=== PATIENT | male | born 1950 | race Caucasian/White ===

== ENCOUNTER 2017-01-28 16:06 | Emergency (ER) | payer BC ==
[~2017-01-28] VITALS: Ht 167.6 cm; Wt 92.5 kg
[2017-01-28] MEDS ORDERED: METFORMIN HCL500 M1 ORAL ×2 (16:49→19:54)
[2017-01-28] MEDS ORDERED: HYZAAR 100-12.1 EACH ORAL (16:49)
[2017-01-28] MEDS ORDERED: NORVASC10 MG ORAL (16:49)
[2017-01-28] MEDS ORDERED: TRICOR48 MG ORAL (16:49)
[2017-01-28] MEDS ORDERED: METFORMIN HCL1000 M1 ORAL ×2 (16:49→19:54)
[2017-01-28] MEDS ORDERED: VITAMIN D1000 UNI1 ORAL (16:49)
[2017-01-28] MEDS ORDERED: FISH OIL CAP1000 MG ORAL (16:49)
[2017-01-28 17:21] LABS: BASOPHILS % (AUTO) 1.5 % (0.0-2.0); EOSINOPHILS % (AUTO) 0.1 % (0.0-3.0); HEMATOCRIT 47.8 % (42.0-52.0); HEMOGLOBIN 15.4 G/DL (14.2-18.0); LYMPHOCYTES % (AUTO) 10.9 % (20.0-45.0); MEAN CORPUSCULAR VOLUME 92 FL (80-99); MONOCYTES % (AUTO) 8.2 % (1.0-10.0); NEUTROPHILS % (AUTO) 79.4 % (45.0-75.0); PLATELET COUNT 303 K/UL (150-450); RED BLOOD COUNT 5.19 M/UL (4.70-6.10); RED CELL DISTRIBUTION WIDTH 11.7 % (11.6-14.8); WHITE BLOOD COUNT 7.6 K/UL (4.8-10.8)
[2017-01-28 17:28] LABS: ANION GAP 17 mmol/L (5-15); BLOOD UREA NITROGEN 82 mg/dL (7-18); CALCIUM 8.7 MG/DL (8.5-10.1); CARBON DIOXIDE 23 MMOL/L (21-32); CHLORIDE 95 MMOL/L (98-107); CREATININE 2.3 MG/DL (0.55-1.30); SODIUM 135 MMOL/L (136-145)
[2017-01-28 17:30] VITALS: BP 134/69
[2017-01-28 17:32] LABS: ALANINE AMINOTRANSFERASE 61 U/L (12-78); ALBUMIN 2.3 G/DL (3.4-5.0); ALBUMIN/GLOBULIN RATIO 0.4 (1.0-2.7); ALKALINE PHOSPHATASE 69 U/L (46-116); ASPARTATE AMINO TRANSFERASE 47 U/L (15-37); BILIRUBIN,TOTAL 0.3 MG/DL (0.2-1.0)
[2017-01-28 17:56] LABS: CKMB 4.5 NG/ML (0.0-3.6)
--- NOTE | 2017-01-28 18:11 | Emergency Room Report ---
History of Present Illness General Chief Complaint: Generalized Weakness Source: Patient Present Illness HPI Patient is a 66-year-old male presented after increased generalized weakness. Patient had recent increased epigastric pain as well as vomiting and diarrhea. He noticed increased abdominal distention. Patient had prior history of diabetes as well as hypertension. He denied any black or bloody stools. Allergies: Coded Allergies: No Known Allergies (Unverified , 01/28/17) Patient History Past Medical History: see triage record Reviewed Nursing Documentation: PMH: Agreed, PSxH: Agreed Nursing Documentation-PMH Past Medical History: No History, Except For Hx Cardiac Problems: No Hx Hypertension: Yes Hx Pacemaker: No Hx Asthma: No Hx COPD: No Hx Diabetes: Yes Hx Cancer: No Hx Gastrointestinal Problems: No Hx Dialysis: No History Of Psychiatric Problem: No Hx Neurological Problems: No Hx Cerebrovascular Accident: No Hx Seizures: No Review of Systems All Other Systems: negative except mentioned in HPI Physical Exam Vital Signs Date Time Temp Pulse Resp B/P (MAP) Pulse Ox O2 Delivery O2 Flow Rate FiO2 01/28/17 16:13 96.8 119 20 132/81 95 Room Air Sp02 EP Interpretation: reviewed, normal General Appearance: normal inspection, well appearing, no apparent distress, alert, GCS 15 Head: atraumatic ENT: normal ENT inspection, hearing grossly normal, normal voice Neck: normal inspection, full range of motion, supple, no bony tend Respiratory: normal inspection, lungs clear, normal breath sounds, no respiratory distress, no retraction, no wheezing Cardiovascular #1: regular rate, rhythm, no edema Gastrointestinal: normal inspection, soft, no guarding, no hernia, other - abdominal distention Genitourinary: no CVA tenderness Musculoskeletal: normal inspection, back normal, normal range of motion Neurologic: normal inspection, alert, oriented x3, responsive, oral and maxillofacial surgery III-XII nml as tested, speech normal Psychiatric: normal inspection, judgement/insight normal, mood/affect normal Skin: normal inspection, normal color, no rash Medical Decision Making Diagnostic Impression: Primary Impression: Acute kidney injury Additional Impressions: Dehydration Rhabdomyolysis Diabetes Hypokalemia Bowel obstruction ER Course Patient presented for abdominal pain. Differential diagnoses included ischemic bowel, appendicitis, perforated viscus, abdominal aortic aneurysm, inferior myocardial infarction, viral gastroenteritis Because of complexity of patient's case laboratory testing and imaging studies were ordered. Patient laboratory testing was notable for elevated creatinine and BUN consistent with acute kidney injury. The patient was mildly hypokalemic. Patient started on IV fluids as well as IV antiemetics. Patient was noted to have continued vomiting. A CT abdomen pelvis showed evidence of fluid-filled bowel in the proximal bowel as well as distended stomach . Patient admitted for IV hydration and as well as further monitoring of renal function.Dr. Panchal was contacted for surgical consult. Ng tube was ordered due to persistent vomiting Patient was subsequently discussed with Dr. Dalton Strickland who is capitated physician for possible transfer to [facility]. Labs Test 01/28/17 16:40 White Blood Count 7.6 K/UL (4.8-10.8) Red Blood Count 5.19 M/UL (4.70-6.10) Hemoglobin 15.4 G/DL (14.2-18.0) Hematocrit 47.8 % (42.0-52.0) Mean Corpuscular Volume 92 FL (80-99) Mean Corpuscular Hemoglobin 29.6 PG (27.0-31.0) Mean Corpuscular Hemoglobin Concent 32.2 G/DL (32.0-36.0) Red Cell Distribution Width 11.7 % (11.6-14.8) Platelet Count 303 K/UL (150-450) Mean Platelet Volume 7.3 FL (6.5-10.1) Neutrophils (%) (Auto) 79.4 % (45.0-75.0) Lymphocytes (%) (Auto) 10.9 % (20.0-45.0) Monocytes (%) (Auto) 8.2 % (1.0-10.0) Eosinophils (%) (Auto) 0.1 % (0.0-3.0) Basophils (%) (Auto) 1.5 % (0.0-2.0) Prothrombin Time 10.2 SEC (9.30-11.50) Prothromb Time International Ratio 1.0 (0.9-1.1) Activated Partial Thromboplast Time 28 SEC (23-33) Sodium Level 135 MMOL/L (136-145) Potassium Level 3.0 MMOL/L (3.5-5.1) Chloride Level 95 MMOL/L (98-107) Carbon Dioxide Level 23 MMOL/L (21-32) Anion Gap 17 mmol/L (5-15) Blood Urea Nitrogen 82 mg/dL (7-18) Creatinine 2.3 MG/DL (0.55-1.30) Estimat Glomerular Filtration Rate 28.8 mL/min (>60) Glucose Level 179 MG/DL (74-106) Lactic Acid Level 2.00 mmol/L (0.66-2.22) Calcium Level 8.7 MG/DL (8.5-10.1) Total Bilirubin 0.3 MG/DL (0.2-1.0) Aspartate Amino Transf (AST/SGOT) 47 U/L (15-37) Alanine Aminotransferase (ALT/SGPT) 61 U/L (12-78) Alkaline Phosphatase 69 U/L (46-116) Total Creatine Kinase 1193 U/L (26-308) Creatine Kinase MB 4.5 NG/ML (0.0-3.6) Creatine Kinase MB Relative Index 0.3 Troponin I 0.000 ng/mL (0.000-0.056) Total Protein 7.5 G/DL (6.4-8.2) Albumin 2.3 G/DL (3.4-5.0) Globulin 5.2 g/dL Albumin/Globulin Ratio 0.4 (1.0-2.7) Lipase 226 U/L (73-393) EKG Diagnostic Results Rate: tachycardiac Rhythm: NSR ST Segments: no acute changes ASA given to the pt in ED: No Rhythm Strip Diag. Results EP Interpretation: yes Rhythm: no PVC's, no ectopy, other - sinus tachycardia Last Vital Signs Date Time Temp Pulse Resp B/P (MAP) Pulse Ox O2 Delivery O2 Flow Rate FiO2 01/28/17 16:13 96.8 119 20 132/81 95 Room Air Status: unchanged Disposition: ADMITTED INPATIENT Condition: Serious Referrals: NON PHYSICIAN (PCP) Farhan Sebastian Jan 28, 2017 18:11
[2017-01-28 18:39] VITALS: BP 137/65
[2017-01-28 20:42] VITALS: BP 151/77
[2017-01-28] MEDS ORDERED: Miralax 17gm pkt ORAL PRN (21:00)
[2017-01-28] MEDS ORDERED: Nitroglycerin Subl 0.4mg tab SL PRN (21:00)
[2017-01-28] MEDS ORDERED: Heparin 5000 units/ml inj SUBQ SCH (21:00)
[2017-01-28] MEDS ORDERED: Potassium Chloride 10 MEQ in NS 1000ml 1,000 ML IV SCH (21:00)
[2017-01-28] MEDS ORDERED: Ketorolac 30mg Inj IV PRN (21:00)
[2017-01-28] MEDS ORDERED: Mylanta II UD 30ml ORAL PRN (21:00)
[2017-01-28] MEDS ORDERED: NovoLOG Insulin Flexpen SUBQ SCH (21:00)
[2017-01-28 22:38] VITALS: BP 125/67
[2017-01-28 23:16] VITALS: BP 125/67
[2017-01-28 23:28] LABS: APPEARANCE,URINE CLEAR; BILIRUBIN, URINE NEGATIVE (NEGATIVE); GLUCOSE, URINE (UA) NEGATIVE (NEGATIVE); KETONES,URINE NEGATIVE (NEGATIVE); LEUKOCYTE ESTERASE ,URINE NEGATIVE (NEGATIVE); NITRITE,URINE NEGATIVE (NEGATIVE); PH,URINE 5 (4.5-8.0); UROBILINOGEN,URINE NORMAL MG/DL (0.0-1.0)
[2017-01-28 23:39] LABS: PROTEIN,URINE NEGATIVE (NEGATIVE)
[2017-01-28 23:40] LABS: COLOR,URINE YELLOW
--- NOTE | 2017-01-29 09:47 | Diagnostic Imaging Report ---
Indication: Pain Comparison: None Technique: Contiguous helical CT images through the abdomen and pelvis was performed without intravenous and oral contrast. Axial, coronal and sagittal reconstructions were reformatted. CT Dose: Total DLP: 1161 mGycm; Total CTDI volume 19.1 Findings: Exam is limited due to lack of intravenous and oral contrast. The liver is enlarged in size measuring 23 cm in craniocaudal dimension. There are diffuse fatty infiltration of the liver. No focal lesions in liver are seen on this limited noncontrast exam. Gallbladder appears normal. No radiopaque gallstones. Spleen is normal. Pancreas is normal. There is some mild nodularity of the left adrenal gland. Right adrenal gland appears normal. Kidneys are without hydronephrosis. No urinary tract stones. No hydroureter. There is mild bilateral perinephric stranding which may be related to chronic scarring. The proximal small bowel loops are dilated. The distal small bowel loops are decompressed. Although well defined transition point is not clearly identified, an obstructive process cannot be excluded. No definite evidence for bowel related inflammatory changes. Appendix is normal. Diverticulosis without evidence for diverticulitis. No free intraperitoneal fluid or free air. In the pelvis, urinary bladder is normal. Small periumbilical hernia containing fat only. Mild degenerative changes of thoracolumbar spine. Mild vascular atherosclerotic calcifications. Impression: The proximal small bowel loops are dilated. The distal small bowel loops are decompressed. Although a well-defined transition point is not clearly identified, an obstructive process cannot be excluded. There is no free fluid or free air. No bowel wall thickening. Appendix is normal. Hepatomegaly with diffuse fatty infiltration Mild nodularity left adrenal gland, nonspecific. Small periumbilical hernia containing fat only.
--- NOTE | 2017-01-29 09:55 | Diagnostic Imaging Report ---
Indication: PAIN Comparison: None Findings: Single view of the chest shows a normal cardiomediastinal silhouette. Pulmonary vasculature is normal. Lung are clear. Soft tissues and osseous structures are within normal limits. Impression: No acute chest disease
--- NOTE | 2017-02-06 16:10 | Cardiology Report ---
APPROVED REPORT EKG Measurement Heart [id number] Sinus tachycardia Inferior infarct, age undetermined Possible Anterior infarct, age undetermined Abnormal ECG
--- NOTE | 2017-02-06 16:10 | Cardiology Report ---
APPROVED REPORT EKG Measurement Heart [id number] Sinus tachycardia Inferior infarct, age undetermined Possible Anterior infarct, age undetermined Abnormal ECG
--- NOTE | 2017-02-06 16:10 | Cardiology Report ---
APPROVED REPORT EKG Measurement Heart [id number] Sinus tachycardia Inferior infarct, age undetermined Possible Anterior infarct, age undetermined Abnormal ECG
== END 2017-01-28 23:00 | disposition short-term general hospital (02) ==
LOC: EMR 17:00
DX: N17.9 Acute kidney failure, unspecified (principal); E86.0 Dehydration; M62.82 Rhabdomyolysis; E11.9 Type 2 diabetes mellitus without complications; E87.6 Hypokalemia; K56.609 Unspecified intestinal obstruction, unspecified as to partial versus complete obstruction; K42.9 Umbilical hernia without obstruction or gangrene; K76.0 Fatty (change of) liver, not elsewhere classified; R16.0 Hepatomegaly, not elsewhere classified; I10 Essential (primary) hypertension
CPT/HCPCS: 36415; 71010; 74176; 80053; 81003; 82550; 82553; 83605; 83690; 84484; 85025; 85610; 85730; 87040; 93005; 99285; J0780; J2405; J3480; S0028